=== PATIENT | male | born 1990 | race Caucasian/White ===

== ENCOUNTER 2017-12-06 22:15 | Emergency (ER) | payer MEDICARE, OTHER ==
[~2017-12-06] VITALS: Ht 175.3 cm; Wt 64.4 kg
[2017-12-06] MEDS ORDERED: IBUP-1958 PO (23:43)
[2017-12-06] MEDS ORDERED: ELVI1TAB3 PO (23:43)
[2017-12-07] MEDS ORDERED: SULFAMETH/TRIMETH 800/160 MG TABLET PO ONE (02:30)
[2017-12-07] MEDS ORDERED: SULFAMETH/TRIMETH 800/160 MG TABLET ONE (03:10)
--- NOTE | 2017-12-07 03:20 | NUR ---
Patient discharged to home in stable conditon. Written and verbal after care instructions given. Patient verbalizes understanding of instructions. Patient reported feeling better prior to discharge. Patient able to ambulate unassisted with steady gait. Patient left with all personal belongings.
[2017-12-07 03:30] VITALS: BP 132/87
== END 2017-12-07 03:20 | disposition home or self-care (01) ==
LOC: ER 22:17
DX: S20.419A Abrasion of unspecified back wall of thorax, initial encounter (principal); L08.9 Local infection of the skin and subcutaneous tissue, unspecified; Z88.0 Allergy status to penicillin; W57.XXXA Bitten or stung by nonvenomous insect and other nonvenomous arthropods, initial encounter; Y93.89 Activity, other specified; Y92.89 Other specified places as the place of occurrence of the external cause; Y99.8 Other external cause status
CPT/HCPCS: A4663

== ENCOUNTER 2018-04-11 16:47 | Emergency (ER) | payer MEDICARE, OTHER ==
[~2018-04-11] VITALS: Ht 172.7 cm; Wt 63.5 kg
[~2018-04-11 16:47] MED LIST: ELVI1TAB3 PO; IBUP-1958 PO
--- NOTE | 2018-04-11 17:40 | NUR ---
Upon being told that he was going to be discharged from the ER pt became upset and stated he has left hip pain for 10 years. at bedside for re-eval.
--- NOTE | 2018-04-11 18:08 | NUR ---
Patient discharged to home in stable conditon. Written and verbal after care instructions given. Patient verbalizes understanding of instructions. Pt ambulated out of ER with steady gait.
== END 2018-04-11 18:09 | disposition home or self-care (01) ==
LOC: ER 16:49
DX: F11.10 Opioid abuse, uncomplicated (principal); F15.10 Other stimulant abuse, uncomplicated; F17.200 Nicotine dependence, unspecified, uncomplicated; Z88.0 Allergy status to penicillin; Z88.1 Allergy status to other antibiotic agents; Z88.8 Allergy status to other drugs, medicaments and biological substances
CPT/HCPCS: 73502; 99284; A4663

== ENCOUNTER 2020-04-21 12:47 | Emergency (ER) | payer MEDICARE, OTHER ==
[~2020-04-21] VITALS: Ht 175.3 cm; Wt 76.7 kg
--- NOTE | 2020-04-21 12:51 | NUR ---
[email or web address], medical screening exam in progress
[2020-04-21] MEDS ORDERED: NEOMY/BACITRA/POLYMYXIN B OINT UD PACKET TP ONE ×2 (13:00→13:07)
[2020-04-21] MEDS ORDERED: CLINDAMYCIN HCL 150 MG CAPSULE PO ONE (13:00)
[2020-04-21] MEDS ORDERED: LIDOCAINE 2%-EPI 1:100,000 20 ML VIAL TP ONE (13:00)
[2020-04-21] MEDS ORDERED: CLINDAMYCIN HCL 300 MG CAPSULE ONE (13:07)
[2020-04-21] MEDS ORDERED: CLINDAMYCIN HCL 150 MG CAPSULE ONE (13:07)
[2020-04-21] MEDS ORDERED: LIDOCAINE 2%-EPI 1:100,000 20 ML VIAL ONE (13:08)
--- NOTE | 2020-04-21 13:40 | NUR ---
Patient is resting comfortably on gurney, NAD.
--- NOTE | 2020-04-21 14:26 | NUR ---
OUT for lunch, still for disposition, endorsed to nursing supervisor decorating Lane accordingly
--- NOTE | 2020-04-21 14:41 | NUR ---
Patient discharged to home in stable condition. Written and verbal after care instructions given. Patient verbalizes understanding of instructions. Stressed follow up or return to ER for worsening s/s.
== END 2020-04-21 14:53 | disposition home or self-care (01) ==
LOC: ER 12:47
DX: L02.415 Cutaneous abscess of right lower limb (principal); L03.115 Cellulitis of right lower limb; M71.561 Other bursitis, not elsewhere classified, right knee; Z59.0 Homelessness; Z88.1 Allergy status to other antibiotic agents; Z88.0 Allergy status to penicillin; Z88.8 Allergy status to other drugs, medicaments and biological substances; F84.5 Asperger's syndrome; Z79.899 Other long term (current) drug therapy; F31.9 Bipolar disorder, unspecified
CPT/HCPCS: A4217; A4663